=== PATIENT | female | born 1980 | race Two or more races ===

== ENCOUNTER → 2025-05-09 | Outpatient (CLI) | payer MEDICAID, SELFPAY ==
[2025-05-09 08:27] LABS: Basophils # (Auto) 0.1 Thou/mm3 (0.0-0.2); Basophils % (Auto) 1 % (0-2.5); Eosinophils # (Auto) 0.3 Thou/mm3 (0.0-0.5); Eosinophils % (Auto) 3 % (0-10); Hematocrit 49.4 % (36.0-46.0); Hemoglobin 16.4 g/dL (12.0-16.0); Immature Granulocytes Auto 0.03 Thou/mm3 (0.00-0.00); Lymphocytes # (Auto) 1.9 Thou/mm3 (1.0-4.8); Lymphocytes % (Auto) 19 % (10-50); Mean Corpuscular HGB Conc 33.2 g/dl (31.0-37.0); Mean Corpuscular Hemoglobin 29.1 pg (25.0-35.0); Mean Corpuscular Volume 88 fL (80-100); Monocytes # (Auto) 0.6 Thou/mm3 (0.0-0.8); Monocytes % (Auto) 6 % (0-12); Neutrophils # (Auto) 6.9 Thou/mm3 (1.8-7.7); Neutrophils % (Auto) 71 % (37-80); Nucleated Red Blood Cell # 0.00 Thou/mm3 (0.00-0.00); Nucleated Red Blood Cell % 0 /100 WBC (0); Platelet Count 238 Thou/mm3 (140-440); RDW Standard Deviation 44.2 fL (36.4-46.3); Red Blood Count 5.64 Miln/mm3 (4.00-5.20); White Blood Count 9.8 Thou/mm3 (3.6-11.0)
[2025-05-09 08:36] LABS: HCG,Qualitative Serum Negative
[2025-05-09 09:34] LABS: INR 0.9 (0.9-1.3); Partial Thromboplastin Time 26.5 Seconds (22.0-36.0); Prothrombin Time 10.1 Seconds (9.0-12.2)
== END | disposition home or self-care (01) ==
LOC: SLAB 05-15 07:09
PROVIDERS: Radiology Diagnostic Radiology; PCP Nurse Practitioner; Referring Provider Nurse Practitioner; Visit Provider Nurse Practitioner
DX: E04.1 Nontoxic single thyroid nodule (principal)
CPT/HCPCS: 36415; 84703; 85025; 85610; 85730

== ENCOUNTER 2025-06-21 07:49 | Emergency (ER) | payer MEDICAID, SELFPAY ==
[2025-06-21 08:04] VITALS: BP 132/80; PULSE 103; RESP 17; TEMP 36.8; O2SAT 96; BMI 27.9
--- NOTE | 2025-06-21 08:23 | PD.EDRME ---
Rapid Medical Screening Exam RME Arrival date/time: 06/21/25 07:49 44-year-old female presents to the Emergency Department today with c/o generalized abdominal pain and bloating Chief Complaint: Abdominal Pain Time Seen by Provider: 06/21/25 08:22 Vital signs: Vital Signs Temperature 98.3 F 06/21/25 08:04 Pulse Rate 103 H 06/21/25 08:04 Respiratory Rate 17 06/21/25 08:04 Blood Pressure 132/80 H 06/21/25 08:04 Pulse Oximetry (%) 96 06/21/25 08:04 Oxygen Delivery Method Room Air 06/21/25 08:04 Exam: Clinically patient does have distention of her abdomen Clinical Impression: Lab work and imaging obtained
--- NOTE | 2025-06-21 09:14 | PC.NURSE ---
NA X 1 @1580
--- NOTE | 2025-06-21 09:29 | PC.NURSE ---
NA X 2 @7187
--- NOTE | 2025-06-21 09:47 | PC.NURSE ---
NA X 3 @6242
== END 2025-06-21 10:36 | disposition left against medical advice (07) ==
LOC: SERX 09:49
PROVIDERS: Emergency Provider Emergency Medicine
DX: Z53.21 Procedure and treatment not carried out due to patient leaving prior to being seen by health care provider (principal)
CPT/HCPCS: 80053; 80307; 81001; 81025; 83690; 85025; 99281